=== PATIENT | male | born 1990 | race African-American/Black ===

== ENCOUNTER 2018-11-06 10:16 | Emergency (ER) | payer OTHER ==
[2018-11-06 10:24] VITALS: BP 124/75
--- NOTE | 2018-11-06 10:41 | EDPHY ---
H & P Stated Complaint: M1 --SI --BPD called by pt Time Seen by Provider: 11/06/18 10:27 HPI/ROS: CHIEF COMPLAINT: Suicidal ideation HISTORY OF PRESENT ILLNESS: The patient is a 28-year-old homeless man who recently moved from [place]. He states that he moved here to join [employer] which he found out later was a cult. They are currently after him. He has a history of bipolar and is not taking his Seroquel or trazodone. He denies drug or alcohol use. He denies attempted self-harm. Is very cooperative and answers all questions appropriately. Severity: Moderate Modifying factors: None REVIEW OF SYSTEMS: Constitutional: denies: chills, fever, recent illness, recent injury EENTM: denies: blurred vision, double vision, nose congestion Respiratory: denies: cough, shortness of breath Cardiac: denies: chest pain, irregular heart rate, lightheadedness, palpitations Gastrointestinal/Abdominal: denies: abdominal pain, diarrhea, nausea, vomiting, blood streaked stools Genitourinary: denies: dysuria, frequency, hematuria, pain Musculoskeletal: denies: joint pain, muscle pain Skin: denies: lesions, rash, jaundice, bruising Neurological: denies: headache, numbness, paresthesia, tingling, dizziness, weakness Hematologic/Lymphatic: denies: blood clots, easy bleeding, easy bruising Immunologic/allergic: denies: HIV/AIDS, transplant 10 systems reviewed and negative except as noted EXAM: GENERAL: Well-appearing, well-nourished and in no acute distress. HEAD: Atraumatic, normocephalic. EYES: Pupils equal round and reactive to light, extraocular movements intact, sclera anicteric, conjunctiva are normal. ENT: TMs normal, nares patent, oropharynx clear without exudates. Moist mucous membranes. NECK: Normal range of motion, supple without lymphadenopathy or JVD. LUNGS: Breath sounds clear to auscultation bilaterally and equal. No wheezes rales or rhonchi. HEART: Regular rate and rhythm without murmurs, rubs or gallops. ABDOMEN: Soft, nontender, normoactive bowel sounds. No guarding, no rebound. No masses appreciated. BACK: No CVA tenderness, no spinal tenderness, step-offs or deformities EXTREMITIES: Normal range of motion, no pitting or edema. No clubbing or cyanosis. NEUROLOGICAL: Cranial nerves II through XII grossly intact. Normal speech, normal gait. 5/5 strength, normal movement in all extremities, normal sensation , normal reflexes PSYCH: Normal mood, normal affect. SKIN: Warm, dry, normal turgor, no visible rashes or lesions. Source: Patient Exam Limitations: No limitations - Medical/Surgical History Hx Asthma: No Hx Chronic Respiratory Disease: No Hx Diabetes: No Hx Cardiac Disease: No Hx Renal Disease: No Hx Cirrhosis: No Hx Alcoholism: No Hx HIV/AIDS: No Hx Splenectomy or Spleen Trauma: No Other PMH: Bipolar schizo affective - Family History Significant Family History: No pertinent family hx - Social History Smoking Status: Current every day smoker Alcohol Use: Sober Drug Use: None Constitutional: Initial Vital Signs Temperature (C) 36.7 C 11/06/18 10:20 Heart Rate 88 11/06/18 10:20 Respiratory Rate 18 11/06/18 10:20 Blood Pressure 124/75 H 11/06/18 10:20 O2 Sat (%) 97 11/06/18 10:20 O2 Delivery Mode Room Air Allergies/Adverse Reactions: No Known Allergies Allergy (Unverified 11/06/18 10:19) Home Medications: Medication Instructions Recorded NK [No Known Home Meds] 11/06/18 Medical Decision Making ED Course/Re-evaluation: 12 20 p.m. the patient has been evaluated by Mental Health. He does not meet criteria for admission. He is primarily requesting senior living. He tells them that he give all of his money to the cult and does not have enough money to get back home or to his mom's house in [place]. They have given him resources and he will follow up with [facility]. Differential Diagnosis: Partial list of the Differential diagnosis considered include but were not limited to; compression, anxiety, substance abuse and although unlikely based on the history and physical exam, I also considered intoxication, suicidality, homicidality. - Data Points Laboratory Results: Laboratory Results 11/06/18 10:45 11/06/18 10:45 Departure - Departure Disposition: Home, Routine, Self-Care Clinical Impression: Depression Qualifiers: Depression Type: unspecified Qualified Code(s): F32.9 - Major depressive disorder, single episode, unspecified Condition: Fair Instructions: Depression (ED) Referrals: NONE *PRIMARY CARE P,. [Primary Care Provider] - As per Instructions [facility],. [Clinic] - 1-2 days without fail
[2018-11-06 10:56] LABS: PLATELET COUNT 313 10^3/uL (150-400)
--- NOTE | 2018-11-06 13:10 | ASMTTLCEVL ---
TLC Evaluation - Basic Information Evaluation Start Date and 11/06/2018 11:45 AM Time Hospital Status Answers: M1 Hold 72-hr M1 Hold Start Date 11/06/2018 09:53 AM and Time Patient statement Notes: I just want to be in a hospital a safe place. I have no other place to go. I called the police myself. I came here 3 weeks ago from [place] to be part of the [employer] cult. They convinced me that the [employer] I believe in was a demon, a devil, and that I was going to [facility]. They require members to give up possession of their belongings and money for the benefit of the organization. If I could get my money back from them, I would be going back home to [place] or go to [place]. 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 The respondent stated he felt as if the world was ending and indicated he wanted to . He said he is experiencing hallucinations and needs help before he kills himself. Pt was clean, well groomed with trimmed beltran. He was polite, pleasant and cooperative. He appeared to over-endorse the highest values on the BDI/BSS questionnaires. It is strongly suspected that pt is half-way seeking. Diagnosis History Notes: Pt reported being diagnosed with Bipolar Disorder 3 years ago. Prior suicide attempts Notes: Pt reported a history of two previous suicide attempts the first was 5 years ago in which he stated he attempted to hang himself. The second attempt was December 13, 2017 in which he took an overdose of Risperdal and was psychiatrically hospitalized. Prior hospitalizations Notes: His first psychiatric hospitalization was in September 2017 at [facility] in [place], [place] for having suicidal ideation. He was hospitalized in November 2017 following overdose of Risperdal at [facility] in [place], [place]. Treatment Responses Notes: He reported being off his medications for the past 3 weeks. History of violence Notes: Pt denied any history of aggression/violence. Therapist: None. Psychiatrist: He was most recently being seen by a female psychiatrist named Marah Kaur MD in [place], [place] for medication management. He reported last seeing her about a year ago. He had been under her care for approximately 2-3 years. Medications (name, dosage, route, freq uency) Notes: None currently. He reported being off his medications for the past 3 weeks. He had been on Trazodone 100 mg and Seroquel 50 mg po daily. Allergies/Reaction Notes: NKDA. Sleep Notes: WNL Appetite Notes: WNL Medical/Surgical history Notes: Noncontributory. Substance use history (frequency, intensity, his tory, duration) Notes: Pt reported he drank alcohol while in college but no use of any alcohol in 6 years. He reported he first tried marijuana at age 17, with last use in July when he was in [place]. He reported having tried cocaine in his 20s. BAL was zero. UDS results negative for all tested substances. Family composition Notes: Pt reported that his father from a heroin overdose about 3 years ago. His mother is still living and resides in [place]. He has a 26 yo sister living with the mother and a 23 yo brother who lives in [place]. Need for family Answers: No participation in patient's care Family psychiatric/substance abuse history Notes: Pt reported that his father had schizophrenia and was a heroin addict. He 3 years ago from a heroin overdose. His paternal GMOC and maternal GMOC were both reportedly heroin addicts. Developmental history Notes: Pt reported that he was born in [place]. He moved to [place] at age 13. He denied any childhood learning difficulties. He denied any childhood history of TBIs, LOC or concussions. He denied any childhood history of physical, emotional or sexual abuse/trauma. He reported that he had little exposure to his father during his childhood and was raised by his mother. Abuse concerns Answers: None Marital status/children Notes: Pt is single, never , no dependents. Living situation Notes: Pt is transient, homeless. He arrived to [facility] about 3 weeks ago from [place], [place] to join a [employer]ahaoism cult called [employer]. Sexual history/orientation Notes: Not active. Heterosexual. Peer support/family strengths Notes: No local supports identified. Education level/history Notes: Pt reported he is 5 credits short of obtaining a bachelors degree from [employer] in [place], [place]. Work history Notes: Pt reported he has been on SSDI for the past 3 years. Notes: None. Legal Notes: Pt denied any arrest/legal history. 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 Leisure Notes: Pt reported he enjoys playing the keyboard, singing, writing, reading, drawing. Patient's strengths Answers: Artistic/Creative/Musical (Please select at least TWO strengths): Funny/Using Humor Insightful Intelligent Willingness [facility] Evaluation - Mental Status Exam Appearance: Answers: Appropriate Clean Well Groomed Neat Eye Contact: Answers: Good/Direct Mood: Answers: Euthymic Affect: Answers: Appropriate Calm Behavior: Answers: Appropriate Cooperative Manipulative Speech: Answers: Relevant Logical Clear Coherent Thought Process: Answers: Organized Oriented Alert Goal Oriented Intact Insight: Answers: Fair Judgement: Answers: Fair Hallucinations: Answers: None Current Stage of Change Answers: Precontemplation Pt reported to have Answers: No suicidal/self-injuring ideation/behavior? Pt reported to have Answers: No aggression/assault ideation/behavior? Pt reported to be making Answers: No aggression/assault threats? Pt exhibits inability to Answers: No care for self/grave disability? Ideation/behavior is Answers: No chronic? Patient has a specific Answers: No plan? Pt has access to means to Answers: No execute the plan? Ideation involves Answers: No serious/lethal intent? Ideation has Answers: No delusional/hallucinatory content? History of Answers: Yes suicidal/self-injuring ideation, behavior, or threats? History of Answers: No aggressive/assaultive ideation, behavior, or threats? History of serious Answers: No physical harm to self/others while in treatment setting? [facility] Evaluation - Suicide/Homicide Risk Suicide Risk Factors: Answers: Bipolar Disorder Financial Difficulties Inadequate Social Support Lack of Social Support Lack/Loss of Employment Prior Suicide Attempt(s) Homicide/violence risk Answers: None factors: Suicide Internal Answers: Absence of Psychosis Protective Factors: Orthodox Beliefs Suicide External Answers: None Protective Factors: Ranking of patient's Answers: Low suicidal risk: Ranking of patient's Answers: Low homicidal risk: [facility] Evaluation - Wrap-up BDI Total Score: 63 BDI Question #2 Score: 3 BDI Question #9 Score: 3 BSS Total Score: 37 AXIS I Diagnosis (include DSM-V and ICD-10 codes), must also be entered in [employer], which is the source of truth. Notes: Malingering V65.2 (Z76.5) Bipolar I Disorder, mild 296.41 (F31.11) by reported history In consultation with [facility] ED physician, Yonathan Reed MD, Dr. Reed concurred that pt does not appear to meet 27-65 criteria requiring psychiatric hospitalization as pt does not appear to be an imminent risk of harm to self/others/gravely disabled due to a mental illness condition. Dr. Reed provided telephone order read back vacating hold at 1220 hrs. Evaluation End Date and 11/06/2018 01:00 PM Time (HH:MM): Date Signed: 11/06/2018 01:09 PM Electronically Signed By:Andry Carrillo
--- NOTE | 2018-11-06 13:12 | ASMTTCLDSP ---
TLC Discharge Disposition Disposition: Answers: Discharge If Answers: Yes DISCHARGED: Patient/family given suicide hotline info & SAMHSA brochure? Disposition Notes: Notes: Pt stated commitment or ability to keep self safe, denied thoughts of self harm or harm to others. Pt was provided with literature to [facility], [facility], and [facility]. Pt was given local hotline information and SAMHSA brochure After an Attempt and encouraged to follow up with provided resources. Discharge Concerns/Recommendations: Notes: In consultation with [facility] ED physician, Yonathan Reed MD, Dr. Reed concurred that pt does not appear to meet 27-65 criteria requiring psychiatric hospitalization as pt does not appear to be an imminent risk of harm to self/others/gravely disabled due to a mental illness condition. Dr. Reed provided telephone order read back vacating M1 hold at 1220 hrs. Was patient given the Answers: Not applicable Inpatient Behavioral Health Prohibited Belongings List while in the ED? Psychiatrist vacating M1 Yonathan Reed MD Hold: Type of Hold: Answers: M1/72-hour Hold Hold initiated by: Answers: Police Date Signed: 11/06/2018 01:11 PM Electronically Signed By:Andry Carrillo
== END 2018-11-06 13:06 | disposition home or self-care (01) ==
LOC: EEVIPCON 10:16
DX: F32.9 Major depressive disorder, single episode, unspecified (principal); Z59.0 Homelessness
CPT/HCPCS: 80305; G0480